=== PATIENT | male | born 1945 | race Caucasian/White ===

== ENCOUNTER → 2016-12-17 | Outpatient (CLI) | payer MEDICARE, BC ==
--- NOTE | ~2016-12-17 | ECH ---
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 The estimated left ventricular ejection fraction is 60-65%. Diastolic assessment reveals Grade I diastolic dysfunction. No significant valvular abnormalities. Procedure Type of Study TTE procedure:Echo Complete SF. Procedure Date Date: 12/17/2016 Start: 01:09 PM Technical Quality: Good visualization Indications:Chest pain and Hypertension. Appropriate Use Criteria: 9 Height: 65 inches Weight: 205 pounds BSA: 2 m Rhythm: Irregular HR: 78 bpm BP: 135/75 mmHg M-Mode/2D Measurements LV Diastolic Dimension: 5.03 cm LV Systolic Dimension: 2.69 cm LV Septum Diastolic: 0.65 cm LV PW Diastolic: 0.66 cm AO Root Dimension: 3.27 cm Cardiac Output: 4.98 l/min LA Dimension: 4.1 cm Cardiac Index: 2.49 l/min*m RV Diastolic Dimension: 3.5 cm LA volume index: 27 ml/m LVOT: 1.9 cm LVOT VTI: 22.51 cm RV Base: 3 cm LV Stroke volume: 63.79 ml RV Mid: 2 cm LV Stroke volume index: 31.9 ml/m TAPSE: 3 cm TDI-S': 18 cm/s Doppler Measurements AV Peak Velocity: 1.3 m/s MV Peak E-Wave: 0.89 m/s AV Peak Gradient: 6.76 mmHg MV Peak A-Wave: 0.89 m/s AV Mean Gradient: 3.51 mmHg MV E/A Ratio: 1 LVOT Peak Velocity: 1.32 m/s MV P1/2t: 62.9 msec AV Area (Continuity):2.44 cm MV Deceleration Time: 215.5 msec TR Velocity:2.49 m/s MV Area (PHT): 3.5 cm TR Gradient:24.87 mmHg PV Peak Velocity: 1.16 m/s Estimated RAP:3 mmHg PV Peak Gradient: 5.39 mmHg Estimated RVSP: 28 mmHg Estimated PASP: 27.87 mmHg E' Septal Velocity: 0.07 m/s A' Septal Velocity: 0.12 m/s E' Lateral Velocity: 0.1 m/s A' Lateral Velocity: 0.14 m/s RA Area: 12.66 cm Findings Left Ventricle Normal left ventricle size and function. Diastolic assessment reveals Grade I diastolic dysfunction. Right Ventricle Normal right ventricle structure and function. Left Atrium Normal left atrial size. Right Atrium Normal right atrial size. Mitral Valve Normal mitral valve structure and function. Trivial mitral regurgitation by color Doppler. Aortic Valve Normal aortic valve structure and function. Tricuspid Valve Normal tricuspid valve structure and function. Trivial tricuspid regurgitation by color Doppler. Normal pulmonary pressures. Pulmonic Valve Normal pulmonic valve structure and function. Trivial pulmonic valve regurgitation by color Doppler. Pericardial Effusion No evidence of pericardial effusion. Miscellaneous Visualized portions of the aortic root and ascending aorta appear normal in size. Pleural Effusion No evidence of pleural effusion. Signature
== END | disposition home or self-care (01) ==
LOC: CARD 12-08 14:46
DX: R07.9 Chest pain, unspecified (principal); I51.89 Other ill-defined heart diseases